=== PATIENT | female | born 1995 | race Caucasian/White ===

== ENCOUNTER 2016-07-20 19:01 | Emergency (ER) | payer MEDICAID ==
[2016-07-20] MEDS ORDERED: diphenhydrAMINE 25 MG CAPSULE PO STA (20:22)
[2016-07-20] MEDS ORDERED: DEXAMETHASONE 10 MG/ML VIAL PO STA (20:22)
[2016-07-20] MEDS ORDERED: CETIRIZINE 10 MG TABLET PO STA (20:22)
[2016-07-20] MEDS ORDERED: MAG HYDROX/AL HYDROX/SIMETH 30 ML UDC PO STA (20:23)
[2016-07-20] MEDS ORDERED: diphenhydrAMINE 25 MG CAPSULE PO ONE (20:24)
[2016-07-20] MEDS ORDERED: CETIRIZINE 10 MG TABLET ONE (20:24)
[2016-07-20] MEDS ORDERED: MAG HYDROX/AL HYDROX/SIMETH 30 ML UDC ONE (20:24)
[2016-07-20] MEDS ORDERED: DEXAMETHASONE 10 MG/ML VIAL ONE (20:24)
== END 2016-07-20 21:00 | disposition home or self-care (01) ==
DX: R09.89 Other specified symptoms and signs involving the circulatory and respiratory systems (principal)
CPT/HCPCS: 93005; 99283; A9270

== ENCOUNTER 2017-12-14 14:41 | Outpatient (CLI) | payer MEDICAID ==
[2017-12-14 20:47] LABS: HB2 TOTAL 14.7 g/dL; HEMOGLOBIN A1C 0.5 g/dL; HEMOGLOBIN A1C % 5.3 % (4.6-6.2)
== END 2017-12-14 14:42 | disposition home or self-care (01) ==
LOC: LAB.F 14:41
PROVIDERS: ATTEND Nurse Practitioner Family
DX: Z13.1 Encounter for screening for diabetes mellitus (principal); B83.9 Helminthiasis, unspecified
CPT/HCPCS: 36415; 83036

== ENCOUNTER 2017-12-15 08:00 | Outpatient (CLI) | payer MEDICAID | END 2017-12-15 08:01 | LOC: LAB.F 08:00 | PROVIDERS: ATTEND Nurse Practitioner Family | DX: B83.9 Helminthiasis, unspecified (principal) | CPT/HCPCS: 83630; 87045; 87046; 87177; 87209; 89055 ==

== ENCOUNTER 2017-12-16 10:53 | Outpatient (CLI) | payer MEDICAID ==
--- NOTE | 2017-12-16 11:29 | XRAY Report ---
Reason: WORM IN STOOL Procedure Date: 12/16/2017 Accession Number: [id number] / [id number] Procedure: XR - Chest 2 View X-Ray CPT Code: 46213 FULL RESULT: EXAM: CHEST RADIOGRAPHY EXAM DATE: 12/16/2017 10:58 AM. CLINICAL HISTORY: Worm in stool unidentified etiology. COMPARISON: None. TECHNIQUE: 2 views. FINDINGS: Lungs/Pleura: No focal opacities evident. No pleural effusion. No pneumothorax. Normal volumes. Mediastinum: Heart and mediastinal contours are unremarkable. Other: None. IMPRESSION: Normal 2-view chest radiography. RADIA
--- NOTE | 2017-12-16 17:20 | XRAY Report ---
Reason: WORM IN STOOL Procedure Date: 12/16/2017 Accession Number: [id number] / [id number] Procedure: XR - Abdomen 2 View X-Ray CPT Code: 60034 FULL RESULT: EXAM: ABDOMEN RADIOGRAPHY EXAM DATE: 12/16/2017 10:58 AM. CLINICAL HISTORY: Tapeworm and stool COMPARISON: None. TECHNIQUE: 2 views. FINDINGS: Lung Bases: Unremarkable. Bowel Gas Pattern: Within normal limits. No dilated loops or abnormal fluid levels. Free Air: None. No urologic calcifications. IMPRESSION: Negative 2-view abdomen x-ray. RADIA
== END 2017-12-16 10:54 | disposition home or self-care (01) ==
LOC: DI 10:53
PROVIDERS: ATTEND Nurse Practitioner Family
DX: B83.9 Helminthiasis, unspecified (principal)
CPT/HCPCS: 71046; 74019

== ENCOUNTER 2018-08-28 13:30 | Outpatient (CLI) | payer MEDICAID | END 2018-08-28 23:59 | disposition home or self-care (01) | LOC: LAB.R 13:30 | PROVIDERS: ATTEND Registered Nurse | DX: Z72.51 High risk heterosexual behavior (principal) | CPT/HCPCS: 87491; 87591 ==

== ENCOUNTER 2018-08-28 13:51 | Outpatient (CLI) | payer MEDICAID | END 2018-08-28 13:52 | disposition home or self-care (01) | LOC: LAB.F 13:51 | PROVIDERS: ATTEND Registered Nurse | DX: Z72.51 High risk heterosexual behavior (principal) | CPT/HCPCS: 36415; 81599; 87491; 87591 ==

== ENCOUNTER 2018-09-25 02:00 | Emergency (ER) | payer MEDICAID ==
[2018-09-25 02:09] VITALS: BP 119/72
--- NOTE | 2018-09-25 02:38 | ED Physician Documentation ---
PD HPI OPHTHO - Stated complaint Stated Complaint: EYE PX - Chief complaint Chief Complaint: Heent - History obtained from History obtained from: Patient - History of Present Illness Timing - onset: Enter time (2199), Last night Timing - duration: Hours Timing - details: Abrupt onset, Still present Location: Right Associated symptoms: Redness, Tearing, FB sensation Contributing factors: Other (patient got out of the shower and felt something get in to her right eye) Similar symptoms before: Has not had sx before Recently seen: Not recently seen - Additional information Additional information: Previously well 23-year-old female who prefers to be called Frankie got out of the shower tonight and had a foreign body sensation in her right eye she has had some irritation and redness to the eye and this is persisted. She is coming to the emergency department now for evaluation. Review of Systems Constitutional: denies: Fever Eyes: reports: Irritation. denies: Loss of vision, Decreased vision, Photophobia Ears: denies: Ear pain Nose: denies: Rhinorrhea / runny nose, Congestion Respiratory: denies: Cough PD PAST MEDICAL HISTORY - Past Medical History Psych: Depression, Anxiety - Past Surgical History Past Surgical History: Yes General: Appendectomy - Present Medications Home Medications: Ambulatory Orders Medication Instructions Recorded Confirmed Testosterone Cypionate 1 amp IM Q14D 07/20/16 07/20/16 dexAMETHasone [Decadron] 4 mg PO DAILY #5 tablet 07/20/16 Neomycin/Poly/Dex Ophth Drops 1 drops RIGHTEYE QID #1 bottle 09/25/18 [Maxitrol Ophth Drops] - Allergies Allergies/Adverse Reactions: Allergies Allergy/AdvReac Type Severity Reaction Status Date / Time No Known Drug Allergies Allergy Verified 01/21/14 02:07 - Social History Does the pt smoke?: No Smoking Status: Never smoker Does the pt drink ETOH?: Yes Does the pt have substance abuse?: Yes - Immunizations Immunizations are current?: Yes - POLST Patient has POLST: No PD ED PE NORMAL - Vitals Vital signs reviewed: Yes (normal ) - General General: Alert and oriented X 3, No acute distress, Well developed/nourished - HEENT HEENT: Atraumatic, PERRL, EOMI, Other (With use of a magnifying lamp the conjunctive are examined the upper lid is everted there is no obvious foreign body seen. There is no distortion to the globe there is no distortion to the iris and no hyphema. There is minimal fluorescein uptake in the cornea in the lower aspect. There is no dendritic spiculation. There is scleral injection present.) - Neck Neck: Supple, no meningeal sign - Respiratory Respiratory: No respiratory distress - Neuro Neuro: Alert and oriented X 3, drapery hand 2-12 intact, No motor deficit, No sensory deficit, Normal speech Eye Opening: Spontaneous Motor: Obeys Commands Verbal: Oriented GCS Score: 15 - Psych Psych: Normal mood, Normal affect Results - Vitals Vitals: Vital Signs - 24 hr 09/25/18 02:06 Temperature 36.3 C L Heart Rate 69 Respiratory 16 Rate Blood Pressure 119/72 O2 Saturation 100 Oxygen O2 Source Room air PD MEDICAL DECISION MAKING - ED course Complexity details: considered differential, d/w patient ED course: Previously well 23-year-old female with a foreign body sensation of the right eye has some minimal fluorescein uptake and no specific explanation of how she got something into her eye. After examination of the eye I expect the patient to have resolution of her symptoms within the day. I discussed this with the patient and we have instilled some Maxitrol ophthalmic drops after irrigation of the eye. Departure - Departure Disposition: 01 Home, Self Care Clinical Impression: Corneal abrasion, right Qualifiers: Encounter type: initial encounter Qualified Code(s): S05.01XA - Injury of conjunctiva and corneal abrasion without foreign body, right eye, initial encounter Condition: Stable Instructions: ED Eye Injury Corneal Abrasion Follow-Up: Thor Salinas MD [Provider Admit Priv/Credential] - Prescriptions: Neomycin/Poly/Dex Ophth Drops [Maxitrol Ophth Drops] 1 drops RIGHTEYE QID #1 bottle
[2018-09-25] MEDS ORDERED: NEOMYCIN/POLYMYX/DEXAMETH OPHTH DROPS 5 ML RIGHTEYE STA (02:49)
== END 2018-09-25 03:04 | disposition home or self-care (01) ==
LOC: ED 02:00
DX: S05.01XA Injury of conjunctiva and corneal abrasion without foreign body, right eye, initial encounter (principal); X58.XXXA Exposure to other specified factors, initial encounter
CPT/HCPCS: 99283; J3490

== ENCOUNTER 2020-06-02 09:30 | Outpatient (CLI) | payer MEDICAID | END 2020-06-02 23:59 | disposition home or self-care (01) | LOC: LAB 09:30 | PROVIDERS: ATTEND Family Medicine | DX: N39.0 Urinary tract infection, site not specified (principal) | CPT/HCPCS: 87077; 87086; 87181 ==

== ENCOUNTER 2020-12-23 13:10 | Outpatient (CLI) | payer MEDICAID | END 2020-12-23 13:11 | disposition home or self-care (01) | LOC: COV 13:10 | PROVIDERS: ATTEND Family Medicine | DX: Z20.822 Contact with and (suspected) exposure to COVID-19 (principal) ==

== ENCOUNTER 2021-01-31 07:00 | Outpatient (CLI) | payer MEDICAID | END 2021-01-31 23:59 | disposition home or self-care (01) | LOC: LAB 07:00 | PROVIDERS: ATTEND Emergency Medicine | DX: R30.0 Dysuria (principal) | CPT/HCPCS: 87086 ==

== ENCOUNTER 2021-09-21 11:10 | Outpatient (CLI) | payer MEDICAID ==
[2021-09-21 17:43] LABS: BASOPHILS # (AUTO) 0.1 10^3/uL (0.0-0.1); BASOPHILS % (AUTO) 1.7 %; EOSINOPHILS # (AUTO) 0.2 10^3/uL (0.0-0.7); EOSINOPHILS % (AUTO) 3.2 %; HCT - HEMATOCRIT 45.1 % (37.0-47.0); HGB - HEMOGLOBIN 14.9 g/dL (12.0-16.0); LYMPHOCYTES # (AUTO) 1.7 10^3/uL (1.5-3.5); LYMPHOCYTES % (AUTO) 28.2 %; MEAN CORPUSCULAR HEMOGLOBIN 29.7 pg (27.0-31.0); MEAN CORPUSCULAR VOLUME 89.8 fL (81.0-99.0); MEAN PLATELET VOLUME 9.6 fL (7.9-10.8); MONOCYTES # (AUTO) 0.5 10^3/uL (0.0-1.0); MONOCYTES % (AUTO) 7.5 %; NEUTROPHILS # (AUTO) 3.6 10^3/uL (1.5-6.6); NEUTROPHILS % (AUTO) 59.1 %; PLT - PLATELET COUNT 424 10^3/uL (130-450); RED BLOOD COUNT 5.02 10^6/uL (4.20-5.40); RED CELL DISTRIBUTION WIDTH 12.5 % (12.0-15.0)
[2021-09-21 18:05] LABS: ALBUMIN 4.3 g/dL (3.2-5.5); ALBUMIN/GLOBULIN RATIO 1.3 (1.0-2.2); ALKALINE PHOSPHATASE 48 IU/L (42-121); ALT ALANINE AMINOTRANSFERASE 24 IU/L (10-60); AST ASPARTATE AMINOTRANSFERASE 20 IU/L (10-42); BILIRUBIN,TOTAL 0.4 mg/dL (0.2-1.0); BUN - BLOOD UREA NITROGEN 8 mg/dL (6-20); CALCIUM 9.2 mg/dL (8.5-10.3); CARBON DIOXIDE - CO2 27 mmol/L (21-32); CHLORIDE 103 mmol/L (101-111); CHOL/HDL RATIO 2.4 (<4.4); CHOLESTEROL 151 mg/dL; CREATININE 0.7 mg/dL (0.4-1.0); GFR - MDRD 101 (>89); GLUCOSE 98 mg/dL (70-100); HDL CHOLESTEROL 64 mg/dL; LDL CHOLESTEROL,CALCULATED 73 mg/dL; LDL/HDL RATIO 1.1 (<4.4); POTASSIUM 4.4 mmol/L (3.5-5.0); SODIUM 139 mmol/L (135-145); TOTAL PROTEIN 7.7 g/dL (6.7-8.2); TRIGLYCERIDES 72 mg/dL; VLDL CHOLESTEROL 14 mg/dL
[2021-09-21 18:15] LABS: THYROID STIMULATING HORMONE 0.68 uIU/mL (0.34-5.60)
[2021-09-21 21:32] LABS: ESTIMATED AVERAGE GLUCOSE 97 mg/dL (70-100)
== END 2021-09-21 11:11 | disposition home or self-care (01) ==
LOC: LAB.N 11:10
PROVIDERS: ATTEND Nurse Practitioner Family
DX: Z00.00 Encounter for general adult medical examination without abnormal findings (principal); E66.9 Obesity, unspecified
CPT/HCPCS: 36415; 80050; 80061; 83036; 83721

== ENCOUNTER 2022-05-09 08:00 | Outpatient (CLI) | payer MEDICAID ==
[2022-05-10 03:08] LABS: HCV AB <0.1 s/co ratio (0.0-0.9)
[2022-05-10 08:09] LABS: HIV SCREEN 4TH GENERATION Non Reactive (Non Reactive)
== END 2022-05-09 23:59 | disposition home or self-care (01) ==
LOC: LAB.N 08:00
PROVIDERS: ATTEND Physician Assistant
DX: Z11.3 Encounter for screening for infections with a predominantly sexual mode of transmission (principal)
CPT/HCPCS: 36415; 86803; 87389

== ENCOUNTER 2022-09-04 17:37 | Emergency (ER) | payer MEDICAID ==
[2022-09-04 17:44] VITALS: BP 139/92
--- NOTE | 2022-09-04 17:51 | ED Physician Documentation ---
PD HPI CHEST PAIN - Stated complaint Stated Complaint: RT RIB PX - Chief complaint Chief Complaint: Back Pain - History obtained from History obtained from: Patient - Additional information Additional information: She had a nicotine related cough earlier today and this was about 20 minutes ago feels like she popped a rib and has severe right rib pain and difficulty moving because of it. She is not short of breath. It does hurt to take a deep breath. 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 : None HEENT: None Psych: Depression, Anxiety Musculoskeletal: None Derm: None - Past Surgical History Past Surgical History: Yes General: Appendectomy - Present Medications Home Medications: Ambulatory Orders Medication Instructions Recorded Confirmed Testosterone Cypionate 1 amp IM Q14D 07/20/16 07/20/16 dexAMETHasone [Decadron] 4 mg PO DAILY #5 tablet 07/20/16 Neomycin/Poly/Dex Ophth Drops 1 drops RIGHTEYE QID #1 bottle 09/25/18 [Maxitrol Ophth Drops] HYDROcod/ACETAM 5/325 [[place] 5/325] 1 - 2 tab PO Q6H PRN #15 tablet 09/04/22 - Allergies Allergies/Adverse Reactions: Allergies Allergy/AdvReac Type Severity Reaction Status Date / Time No Known Drug Allergies Allergy Verified 09/04/22 17:43 - Social History Does the pt smoke?: Yes Smoking Status: Current every day smoker Does the pt drink ETOH?: Yes Does the pt have substance abuse?: Yes - Immunizations Immunizations are current?: Yes - POLST Patient has POLST: No PD ED PE NORMAL - Vitals Vital signs reviewed: Yes - General General: Alert and oriented X 3, Other (She appears uncomfortable and has difficulty moving because of the pain.) - Cardiac Cardiac: RRR, No murmur - Respiratory Respiratory: No respiratory distress, Other (Tender to right lower lateral ribs) - Abdomen Abdomen: Non tender - Neuro Neuro: Alert and oriented X 3, Normal speech Results - Vitals Vitals: Vital Signs - 24 hr 09/04/22 17:41 Temperature 36.4 C L Heart Rate 108 H Respiratory 16 Rate Blood Pressure 139/92 H O2 Saturation 98 Oxygen O2 Source Room air - Rads (name of study) X-ray of the right ribs and chest is negative. Relevant Findings:: Final report received, EMP independent interpretation of test PD Medical Decision Making - ED course ED course: 27-year-old woman with chest wall injury after coughing. She is very uncomfortable and administered 2 mg of IM Dilaudid and 60 mg of IM Toradol with excellent relief. X-ray was negative. Departure - Departure Disposition: 01 Home, Self Care Clinical Impression: Chest wall pain Condition: Good Record reviewed to determine appropriate education?: Yes Instructions: ED Strain Chest Wall Prescriptions: HYDROcod/ACETAM 5/325 [[place] 5/325] 1 - 2 tab PO Q6H PRN #15 tablet PRN Reason: Pain Comments: I sent your prescriptions electronically to the [facility] pharmacy at the [address] here in [place]. Follow-up with your doctor in a week if not better, return for new or worsening symptoms. I am prescribing a short course of narcotic pain medication for you. These are potentially dangerous and addictive medications that should be used carefully. These medications may constipate you. Take an yjmn-xos-csbgnsl stool softener (docusate) twice daily with plenty of water while taking these medications. If you go 24 hours without a bowel movement, take awrh-hek-[id number] miralax, per package instructions. Do not drink or drive while taking these medications. If you received narcotic or sedating medications while in the emergency department, do not drive for 24 hours. Store this medication in a safe, secure place and out of reach of children. It is a violation of federal law to give or sell this medication to another person or to use in a manner other than prescribed. The ED will not refill narcotic prescriptions, including prescriptions lost or stolen. To dispose of unwanted medications: 1. [facility] at [address] in [place] has a medication drop box. They accept prescription medications (in pill form) Monday through Monday 9:00 a.m. to 5:00 p.m. 2. The [facility] accepts prescription medications (in pill form only) for disposal year round. Call for more i nformation. 3. Contact the [facility] for the next [facility] sponsored prescription drug collection event. , [phone], or [phone]; Note that many narcotic pain relievers also contain Tylenol/acetaminophen. Please ensure that your total dose of acetaminophen from all sources does not exceed 3 g (3000 mg) per day. Discharge Date/Time: 09/04/22 19:05
[2022-09-04] MEDS: KETOROLAC 60 MG/2 ML VIAL IM STA (18:09)
[2022-09-04] MEDS: HYDROmorphone 1 MG/ML CARPUJECT IM STA (18:09)
--- NOTE | 2022-09-04 18:48 | XRAY Report ---
PROCEDURE: Ribs w/PA Chest RT INDICATIONS: Rib pain TECHNIQUE: 2 views of the right ribs were acquired, along with a single view chest. COMPARISON: 12/16/2017 FINDINGS: Surgical changes and devices: None. Bones and chest wall: A marker is placed upon the area of pain. At this site, no fractures are seen. No fractures or dislocations are seen elsewhere. No suspicious bony lesions. The overlying soft t issues appear unremarkable. Lungs and pleura: No pleural effusions or pneumothorax. Lungs appear clear. Mediastinum: Mediastinal contours appear normal. Heart size is normal. IMPRESSION: No displaced rib fracture or pneumothorax. Reviewed by: Man Morocho MD on 09/04/2022 5:47 PM AKLADARIUS Approved by: Man Morocho MD on 09/04/2022 5:47 PM SHALOM Station ID: [id number]
[2022-09-04] MEDS ORDERED: HYDROcod/ACET 5/325 Prepack 4 PO STA (18:57)
== END 2022-09-04 19:05 | disposition home or self-care (01) ==
LOC: ED 17:37
DX: R07.89 Other chest pain (principal); E10.9 Type 1 diabetes mellitus without complications; F17.200 Nicotine dependence, unspecified, uncomplicated
CPT/HCPCS: 71101; 96372; 99283; J1170

== ENCOUNTER 2023-02-15 10:00 | Outpatient (CLI) | payer MEDICAID ==
[2023-02-15 17:44] LABS: BASOPHILS # (AUTO) 0.1 10^3/uL (0.0-0.1); BASOPHILS % (AUTO) 1.1 %; EOSINOPHILS # (AUTO) 0.3 10^3/uL (0.0-0.7); HCT - HEMATOCRIT 44.7 % (37.0-47.0); HGB - HEMOGLOBIN 14.7 g/dL (12.0-16.0); LYMPHOCYTES # (AUTO) 2.3 10^3/uL (1.5-3.5); LYMPHOCYTES % (AUTO) 31.8 %; MEAN CORPUSCULAR HEMOGLOBIN 29.6 pg (27.0-31.0); MEAN CORPUSCULAR HGB CONC 32.9 g/dL (32.0-36.0); MEAN CORPUSCULAR VOLUME 90.1 fL (81.0-99.0); MEAN PLATELET VOLUME 9.2 fL (7.9-10.8); MONOCYTES # (AUTO) 0.5 10^3/uL (0.0-1.0); MONOCYTES % (AUTO) 6.4 %; NEUTROPHILS # (AUTO) 4.1 10^3/uL (1.5-6.6); NEUTROPHILS % (AUTO) 56.4 %; PLT - PLATELET COUNT 446 10^3/uL (130-450); RED BLOOD COUNT 4.96 10^6/uL (4.20-5.40); RED CELL DISTRIBUTION WIDTH 13.2 % (12.0-15.0); WHITE BLOOD COUNT 7.2 x10^3/uL (4.8-10.8)
[2023-02-15 18:02] LABS: ALBUMIN 4.6 g/dL (3.2-5.5); ALBUMIN/GLOBULIN RATIO 1.5 (1.0-2.2); BILIRUBIN,TOTAL 0.3 mg/dL (0.2-1.0); CALCIUM 9.8 mg/dL (8.5-10.3); CREATININE 0.6 mg/dL (0.6-1.3); CRP - C-REACTIVE PROTEIN 1.8 mg/dL (<0.5); POTASSIUM 4.1 mmol/L (3.5-4.5); TOTAL PROTEIN 7.7 g/dL (6.4-8.9)
[2023-02-15 18:12] LABS: THYROID STIMULATING HORMONE 1.03 uIU/mL (0.34-5.60)
[2023-02-15 20:26] LABS: ESTIMATED AVERAGE GLUCOSE 111 mg/dL (70-100); HEMOGLOBIN A1c% 5.5 % (4.27-6.07)
[2023-02-16 07:10] LABS: PROGESTERONE 0.1 ng/mL (.)
== END 2023-02-15 10:15 | disposition home or self-care (01) ==
LOC: LAB.N 10:00
PROVIDERS: ATTEND Registered Nurse
DX: J32.9 Chronic sinusitis, unspecified (principal); R53.83 Other fatigue; L67.9 Hair color and hair shaft abnormality, unspecified; R10.9 Unspecified abdominal pain; E66.01 Morbid (severe) obesity due to excess calories; N94.6 Dysmenorrhea, unspecified
CPT/HCPCS: 36415; 80050; 82670; 83002; 83036; 83690; 84144; 84403; 86140

== ENCOUNTER 2023-05-17 10:15 | Outpatient (CLI) | payer MEDICAID | END 2023-05-17 10:30 | disposition home or self-care (01) | LOC: LAB.N 10:15 | PROVIDERS: ATTEND Nurse Practitioner | DX: N39.0 Urinary tract infection, site not specified (principal) | CPT/HCPCS: 87086 ==

== ENCOUNTER 2023-05-18 08:00 | Outpatient (CLI) | payer MEDICAID | END 2023-05-18 23:59 | disposition home or self-care (01) | LOC: LAB.N 08:00 | PROVIDERS: ATTEND Nurse Practitioner Psychiatric/Mental Health | DX: N39.0 Urinary tract infection, site not specified (principal) | CPT/HCPCS: 87086 ==

== ENCOUNTER 2023-06-14 01:16 | Emergency (ER) | payer MEDICAID ==
[2023-06-14 01:40] VITALS: O2SAT 98
[2023-06-14 01:52] LABS: BILIRUBIN,URINE NEGATIVE (NEGATIVE); GLUCOSE, URINE (UA) NEGATIVE (NEGATIVE); KETONES,URINE (UA) NEGATIVE (NEGATIVE); LEUKOCYTE ESTERASE, URINE NEGATIVE (NEGATIVE); NITRITE,URINE NEGATIVE (NEGATIVE); OCCULT BLOOD,URINE NEGATIVE (NEGATIVE); PROTEIN,URINE NEGATIVE (NEGATIVE); UROBILINOGEN,URINE 0.2 (NORMAL) E.U./dL (NORMAL)
[2023-06-14 01:56] LABS: CLARITY,URINE CLEAR (CLEAR)
[2023-06-14 01:57] LABS: HCG UR QUAL NEGATIVE
--- NOTE | 2023-06-14 01:59 | ED Physician Documentation ---
History of Present Illness - Stated complaint Stated Complaint: SOA/DIZZY/ CHEST PX - Chief complaint Chief Complaint: General - History obtained from History obtained from: Patient - Additonal information Additional information: 28-year-old female with history of anxiety and depression presents by private vehicle from home for lightheadedness, dizziness, chest pain. Patient states that she recently got over a viral illness 2 to 3 days ago and has felt symptomatic since. Nothing seems to make her symptoms better or worse. Associated intermittent nonproductive cough. No medications taken for symptoms prior to arrival. Denies vertigo, nausea, vomiting, abdominal pain, headache, sore throat, other complaints at this time. Review of Systems Constitutional: denies: Fever, Chills, Myalgias, Fatigue Cardiac: reports: Chest pain / pressure. denies: Palpitations, Calf pain Respiratory: reports: Cough. denies: Dyspnea, Wheezing GI: denies: Abdominal Pain, Nausea, Vomiting Skin: denies: Rash, Lesions, Abrasion (s) Neurologic: reports: Other (lightheaded). 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 : None HEENT: None Psych: Depression, Anxiety Musculoskeletal: None Derm: None - Past Surgical History Past Surgical History: Yes General: Appendectomy - Present Medications Home Medications: Ambulatory Orders Medication Instructions Recorded Confirmed Buspirone HCl 10 mg PO DAILY 06/14/23 06/14/23 Escitalopram Oxalate 20 mg PO DAILY 06/14/23 06/14/23 buPROPion [Wellbutrin Xl] 150 mg PO DAILY 06/14/23 06/14/23 - Allergies Allergies/Adverse Reactions: Allergies Allergy/AdvReac Type Severity Reaction Status Date / Time No Known Drug Allergies Allergy Verified 06/14/23 01:37 - Social History Does the pt smoke?: Yes Smoking Status: Current every day smoker Does the pt drink ETOH?: Yes Does the pt have substance abuse?: Yes - Immunizations Immunizations are current?: Yes - POLST Patient has POLST: No PD ED PE NORMAL - Vitals Vital signs reviewed: Yes - General General: Alert and oriented X 3, No acute distress, Well developed/nourished - HEENT HEENT: Atraumatic, PERRL, EOMI, Ears normal, Moist mucous membranes, Pharynx benign, Dentition benign - Cardiac Cardiac: RRR, Strong equal pulses - Respiratory Respiratory: No respiratory distress, Clear bilaterally - Abdomen Abdomen: Soft, Non tender, Non distended - Derm Derm: Normal color, Warm and dry, No rash - Extremities Extremities: No deformity, No tenderness to palpate, Normal ROM s pain - Neuro Neuro: Alert and oriented X 3, 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, No motor deficit, Normal speech - Psych Psych: Normal mood, Normal affect Results - Vitals Vitals: Vital Signs - 24 hr 06/14/23 06/14/23 06/14/23 01:29 01:30 02:59 Temperature 36.5 C Heart Rate 85 88 75 Respiratory 16 17 17 Rate Blood Pressure 136/79 H 127/74 129/67 O2 Saturation 98 98 98 Oxygen O2 Source Room air - Labs Labs: Laboratory Tests 06/14/23 06/14/23 06/14/23 01:44 02:11 02:11 WBC 12.2 H RBC 4.53 Hgb 13.7 Hct 40.3 MCV 89.0 MCH 30.2 MCHC 34.0 RDW 12.4 Plt Count 431 MPV 8.9 Neut # (Auto) 6.7 H Lymph # (Auto) 4.4 H [place] # (Auto) 0.8 Eos # (Auto) 0.2 Baso # (Auto) 0.1 Absolute Nucleated RBC 0.00 Nucleated RBC % 0.0 Sodium 140 Potassium 3.2 L Chloride 104 Carbon Dioxide 28 Anion Gap 8.0 BUN 13 Creatinine 0.7 Estimated GFR (MDRD) 100 Glucose 102 Calcium 9.3 Total Bilirubin 0.3 AST 22 ALT 40 Alkaline Phosphatase 51 Troponin I High Sens Total Protein 7.3 Albumin 4.3 Globulin 3.0 Albumin/Globulin Ratio 1.4 Urine Color YELLOW Urine Clarity CLEAR Urine pH 6.0 Ur Specific [place] 1.020 Urine Protein NEGATIVE Urine Glucose (UA) NEGATIVE Urine Ketones NEGATIVE Urine Occult Blood NEGATIVE Urine Nitrite NEGATIVE Urine Bilirubin NEGATIVE Urine Urobilinogen 0.2 (NORMAL) Ur Leukocyte Esterase NEGATIVE Ur Microscopic Review NOT INDICATED Urine Culture Comments NOT INDICATED Urine HCG, Qual NEGATIVE 06/14/23 02:11 WBC RBC Hgb Hct MCV MCH MCHC RDW Plt Count MPV Neut # (Auto) Lymph # (Auto) [place] # (Auto) Eos # (Auto) Baso # (Auto) Absolute Nucleated RBC Nucleated RBC % Sodium Potassium Chloride Carbon Dioxide Anion Gap BUN Creatinine Estimated GFR (MDRD) Glucose Calcium Total Bilirubin AST ALT Alkaline Phosphatase Troponin I High Sens 2.3 Total Protein Albumin Globulin Albumin/Globulin Ratio Urine Color Urine Clarity Urine pH Ur Specific [place] Urine Protein Urine Glucose (UA) Urine Ketones Urine Occult Blood Urine Nitrite Urine Bilirubin Urine Urobilinogen Ur Leukocyte Esterase Ur Microscopic Review Urine Culture Comments Urine HCG, Qual PD Medical Decision Making - ED course Complexity details: reviewed old records, reviewed results, re-evaluated patient, considered differential, d/w patient ED course: Well-appearing patient with intermittent lightheadedness, chest pain, continued nonproductive cough. Patient states that her concern is that she may have developed pneumonia secondary to her previous upper respiratory infection. Lungs are clear to auscultation bilaterally, saturating well on room air, low suspicion for pneumonia, however will order basic labs and x-ray imaging to assess for other acute causes of patient's symptoms. Laboratory work is reviewed, very mild leukocytosis with WBCs 12, nonspecific. Electrolytes within normal limits, troponin is at lowest limit of assay detection. Chest x-ray negative for acute cardiopulmonary pathology including pneumonia. EKG is normal sinus rhythm without concerning findings. Patient reassessed, resting comfortably in bed, receiving IV fluids and reporting improvement in symptoms. She is relieved to know that her labs and chest x-ray are normal and that she does not have pneumonia. She was counseled to take Tylenol and Motrin as needed for pain, drink plenty fluids, and get plenty of rest. Departure - Departure Disposition: 01 Home, Self Care Clinical Impression: Dizziness Chest pain Qualifiers: Chest pain type: unspecified Qualified Code(s): R07.9 - Chest pain, unspecified Condition: Stable Instructions: ED Chest Pain Atypical Unkn Cause, ED Dizziness UKO Comments: Your laboratory work, chest x-ray, EKG were all normal today. Continue to take your normal medications as prescribed. Follow-up with your primary care physician. Make sure to get plenty of rest and drink plenty of fluids. Take Tylenol and Motrin as needed for any pain. Forms: PCP List Discharge Date/Time: 06/14/23 02:59
--- NOTE | 2023-06-14 02:08 | XRAY Report ---
PROCEDURE: Chest 1V INDICATIONS: CP/DYSPNEA TECHNIQUE: One view of the chest was acquired. COMPARISON: Chest/rib series dated 09/04/2022 FINDINGS: Surgical changes and devices: None. Lungs and pleura: No pleural effusions or pneumothorax. Lungs are clear. Mediastinum: Mediastinal contours appear normal. Heart size is normal. Bones and chest wall: No suspicious bony lesions. Overlying soft tissues appear unremarkable. IMPRESSION: Chest without acute cardiopulmonary abnormalities or focal airspace disease. Reviewed by: Pete Garcia MD on 06/14/2023 2:06 AM PST Approved by: Pete Garcia MD on 06/14/2023 2:06 AM PST Station ID: [id number]
[2023-06-14] MEDS: SODIUM CHLORIDE 0.9% 1,000 ML IV STA (02:11)
[2023-06-14 02:16] LABS: BASOPHILS # (AUTO) 0.1 10^3/uL (0.0-0.1); EOSINOPHILS # (AUTO) 0.2 10^3/uL (0.0-0.7); EOSINOPHILS % (AUTO) 1.5 %; HCT - HEMATOCRIT 40.3 % (37.0-47.0); HGB - HEMOGLOBIN 13.7 g/dL (12.0-16.0); LYMPHOCYTES # (AUTO) 4.4 10^3/uL (1.5-3.5); LYMPHOCYTES % (AUTO) 35.8 %; MEAN CORPUSCULAR HEMOGLOBIN 30.2 pg (27.0-31.0); MEAN PLATELET VOLUME 8.9 fL (7.9-10.8); MONOCYTES # (AUTO) 0.8 10^3/uL (0.0-1.0); MONOCYTES % (AUTO) 6.5 %; NEUTROPHILS # (AUTO) 6.7 10^3/uL (1.5-6.6); NEUTROPHILS % (AUTO) 54.9 %; PLT - PLATELET COUNT 431 10^3/uL (130-450); RED BLOOD COUNT 4.53 10^6/uL (4.20-5.40); RED CELL DISTRIBUTION WIDTH 12.4 % (12.0-15.0); WHITE BLOOD COUNT 12.2 x10^3/uL (4.8-10.8)
[2023-06-14 02:31] LABS: ALBUMIN 4.3 g/dL (3.2-5.5); ALBUMIN/GLOBULIN RATIO 1.4 (1.0-2.2); BILIRUBIN,TOTAL 0.3 mg/dL (0.2-1.0); CALCIUM 9.3 mg/dL (8.5-10.3); CREATININE 0.7 mg/dL (0.6-1.3); POTASSIUM 3.2 mmol/L (3.5-4.5); TOTAL PROTEIN 7.3 g/dL (6.4-8.9)
[2023-06-14 03:06] VITALS: BP 129/67
== END 2023-06-14 02:59 | disposition home or self-care (01) ==
LOC: ED 01:16
DX: R07.9 Chest pain, unspecified (principal); R42 Dizziness and giddiness; F17.200 Nicotine dependence, unspecified, uncomplicated; Z79.899 Other long term (current) drug therapy
CPT/HCPCS: 36415; 80053; 81001; 81003; 81025; 84484; 85025; 87086; 93005; 96360; 99284

== ENCOUNTER 2023-12-31 02:25 | Emergency (ER) | payer MEDICAID ==
--- NOTE | 2023-12-31 03:26 | ED Physician Documentation ---
PD HPI UPPER EXT INJURY - Stated complaint Stated Complaint: LFT FINGER INJ /CAT BITE - Chief complaint Chief Complaint: Laceration - History obtained from History obtained from: Patient - Additonal information Additional information: HPI from patient. At approximately 7:30 PM tonight, patient was bitten by her sister's cat. The cat was no acting unusual and, as far as patient is aware, the cat is UTD on its immunizations and can be observed for the next 10 days. Patient is right handed. She sustained several puncture bites to her left pointer finger. There is mild/moderate pain described as "throbbing", but denies weakness, numbness. ROM intact although increased pain with active flexion. 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 : None HEENT: None Psych: Depression, Anxiety Musculoskeletal: None Derm: None - Past Surgical History Past Surgical History: Yes General: Appendectomy - Present Medications Home Medications: Ambulatory Orders Medication Instructions Recorded Confirmed Buspirone HCl 10 mg PO DAILY 06/14/23 12/31/23 Escitalopram Oxalate 20 mg PO DAILY 06/14/23 12/31/23 buPROPion [Wellbutrin Xl] 150 mg PO DAILY 06/14/23 12/31/23 Amox/Clav 875/125 [Augmentin 1 tablet PO Q12H 10 Days #20 tablet 12/31/23 875/125 Tab] Oxycodone HCl/Acetaminophen 1 - 2 each PO Q6H PRN #14 tablet 12/31/23 [Percocet 5-325 mg Tablet] - Allergies Allergies/Adverse Reactions: Allergies Allergy/AdvReac Type Severity Reaction Status Date / Time No Known Drug Allergies Allergy Verified 12/31/23 02:45 - Social History Does the pt smoke?: Yes Smoking Status: Current every day smoker Does the pt drink ETOH?: Yes Does the pt have substance abuse?: Yes - Immunizations Immunizations are current?: Yes - POLST Patient has POLST: No PD ED PE NORMAL - Vitals Vital signs reviewed: Yes - General General: Alert and oriented X 3, No acute distress, Well developed/nourished - Neuro Neuro: No motor deficit, No sensory deficit PD ED PE EXPANDED - Extremities Extremities: Other (multiple (4-5) punctures to left index finger on both extensor and flexor surfaces, predominantly at, and surrounding, PIP joint. the skin at puncture sites is completely approximated (no gaping/opening)) Results - Vitals Vitals: Oxygen O2 Source Room air PD Medical Decision Making - ED course Complexity details: considered differential, d/w patient ED course: cat bite with multiple puncture sites to left pointer finger. Unfortunately, there is/are no opening(s) to allow for flushing/washing. She is UTD on tetanus immunization. She is given augmentin 875mg PO with rx for same. Given ibuprofen (patient drove self to ED) and take-home vicodin with instruction to take the vicodin if she has inadequate relief from the ibuprofen after an hour. Rx vicodin , as well. Given high rate of infection with cat bites, strongly encouraged to seek follow up within 2-3 days for wound check, and return precautions were carefully reviewed. Departure - Departure Disposition: 01 Home, Self Care Clinical Impression: Cat bite of index finger Qualifiers: Encounter type: initial encounter Qualified Code(s): S61.258A - Open bite of other finger without damage to nail, initial encounter Condition: Good Instructions: ED Bite Cat Follow-Up: Kyra Borjas ARNP [Primary Care Provider] - (2-3 days for recheck of the site of injury ) Prescriptions: Amox/Clav 875/125 [Augmentin 875/125 Tab] 1 tablet PO Q12H 10 Days #20 tablet Oxycodone HCl/Acetaminophen [Percocet 5-325 mg Tablet] 1 - 2 each PO Q6H PRN #14 tablet PRN Reason: pain Comments: You were given the first dose of an antibiotic (Augmentin) in the emergency department, and I have electronically submitted a prescription for 10-day course of this antibiotic to the [facility] pharmacy in [place]. I have also submitted a prescription for Percocet (narcotic/opiate pain medication). You can use ibuprofen per [id number] label instructions as needed for pain, reserving the Percocet for pain that does not respond to the ibuprofen. Do not take any acetaminophen/Tylenol or acetaminophen/Tylenol-containing products, as there is acetaminophen in Percocet and too much acetaminophen can harm your liver. I recommend that you contact your primary care provider when the office next opens to see if you can arrange for a recheck of the site of injury within the next 2 to 3 days. I am prescribing a short course of narcotic pain medication for you. These are potentially dangerous and addictive medications that should be used carefully. These medications may constipate you. Take an axnn-omr-xdekltu stool softener (docusate) twice daily with plenty of water while taking these medications. If you go 24 hours without a bowel movement, take [id number] miralax, per package instructions. Do not drink or drive while taking these medications. If you received narcotic or sedating medications while in the emergency department, do not drive for 24 hours. Store this medication in a safe, secure place and out of reach of children. It is a violation of federal law to give or sell this medication to another person or to use in a manner other than prescribed. The ED will not refill narcotic prescriptions, including prescriptions lost or stolen. To dispose of unwanted medications: 1. [facility] [address] in [place] has a medication drop box. They accept prescription medications (in pill form) Monday through Monday 9:00 a.m. to 5:00 p.m. 2. The [facility] accepts prescription medications (in pill form only) for disposal year round. Call for more information. 3. Contact the [facility] for the next [facility] sponsored prescription drug collection event. , [phone], or [phone]; Note that many narcotic pain relievers also contain Tylenol/acetaminophen. P lease ensure that your total dose of acetaminophen from all sources does not exceed 3 g (3000 mg) per day. Forms: Activity restrictions Discharge Date/Time: 12/31/23 04:32
[2023-12-31] MEDS: oxyCODONE/ACET 5/325 Prepack 4 PO STA (04:17)
[2023-12-31] MEDS: IBUPROFEN 600 MG TABLET PO STA (04:17)
[2023-12-31] MEDS: AMOX/CLAV 875 MG/125 MG TABLET PO STA (04:17)
[2023-12-31 04:34] VITALS: BP 122/68; O2SAT 99
== END 2023-12-31 04:32 | disposition home or self-care (01) ==
LOC: ED 02:25
DX: S61.251A Open bite of left index finger without damage to nail, initial encounter (principal); W55.01XA Bitten by cat, initial encounter; F17.200 Nicotine dependence, unspecified, uncomplicated; Z79.899 Other long term (current) drug therapy
CPT/HCPCS: 99283; A9270